=== PATIENT | male | born 1980 | race Caucasian/White ===

== ENCOUNTER 2019-08-17 08:37 | Day surgery (SDC) | payer OTHER ==
[~2019-08-17] VITALS: Ht 180.3 cm; Wt 64.2 kg
[2019-08-17] MEDS ORDERED: CENTRUM SILVER1 EAC2 PO (09:19)
--- NOTE | 2019-08-17 09:44 | NUR ---
08/17/19 0944 Katie Chowdary PT RESTING COMFORTABLY WITH FATHER AT BEDSIDE, CALL LIGHT WITHIN REACH. DENIES NEEDS AT THIS TIME.
== END 2019-08-17 12:00 | disposition home or self-care (01) ==
LOC: ORSCSDS 08:37
PROVIDERS: Podiatrist Foot & Ankle Surgery
PROC: 0QSN04Z Reposition Right Metatarsal with Internal Fixation Device, Open Approach (ICD-10-PCS; principal; 2019-08-17 10:00)
DX: M21.611 Bunion of right foot (principal); M20.5X1 Other deformities of toe(s) (acquired), right foot
CPT/HCPCS: A9270-GY; C1713; C1769; J0171; J0690; J2250; J2704; J3010; J7120